=== PATIENT | female | born 2000 | race Caucasian/White ===

== ENCOUNTER → 2020-07-25 | Outpatient (REF) | payer OTHER | LOC: M PLALAB 16:18 | PROVIDERS: ATTEND Obstetrics & Gynecology | DX: Z34.80 Encounter for supervision of other normal pregnancy, unspecified trimester (principal); Z53.9 Procedure and treatment not carried out, unspecified reason ==

== ENCOUNTER → 2020-07-26 | Outpatient (REF) | payer OTHER ==
[2020-07-26 18:01] LABS: CHLAMYDIA DNA AMPLIFICATION POSITIVE (NEGATIVE); GC DNA AMPLIFICATION NEGATIVE (NEGATIVE)
[2020-07-26 18:15] LABS: HEMATOCRIT 38.1 % (36.0-47.0); HEMOGLOBIN 12.6 g/dl (12.0-15.5); MEAN CORPUSCULAR HEMOGLOBIN 29.5 pg (27.0-33.0); MEAN CORPUSCULAR HGB CONC 33.1 g/dl (32.0-36.5); MEAN CORPUSCULAR VOLUME 89.2 fl (80.0-96.0); PLATELET COUNT, AUTOMATED 301 10^3/uL (150-450); RED BLOOD COUNT 4.27 10^6/uL (4.00-5.40); WHITE BLOOD COUNT 10.9 10^3/uL (4.0-10.0)
[2020-07-27 09:41] LABS: HEPATITIS C VIRUS ABY INDEX < 0.0 INDEX (<0.8); HIV 1&2 SCREEN CENTAUR NEGATIVE (NEGATIVE)
== END ==
LOC: M PLALAB 14:11
PROVIDERS: ATTEND Obstetrics & Gynecology
DX: O99.211 Obesity complicating pregnancy, first trimester (principal)

== ENCOUNTER → 2020-08-23 | Outpatient (REF) | payer OTHER ==
[2020-08-23 20:29] LABS: CHLAMYDIA DNA AMPLIFICATION NEGATIVE (NEGATIVE); GC DNA AMPLIFICATION NEGATIVE (NEGATIVE)
== END ==
LOC: M PLALAB 08:33
PROVIDERS: ATTEND Obstetrics & Gynecology
DX: A74.9 Chlamydial infection, unspecified (principal)

== ENCOUNTER → 2020-08-23 | Outpatient (CLI) | payer OTHER | LOC: M PLALAB 15:31 | PROVIDERS: ATTEND Obstetrics & Gynecology | DX: Z36.89 Encounter for other specified antenatal screening (principal); Z34.81 Encounter for supervision of other normal pregnancy, first trimester ==

== ENCOUNTER → 2020-09-20 | Outpatient (CLI) | payer OTHER | LOC: M WHC 09:02 | PROVIDERS: ATTEND Obstetrics & Gynecology | DX: O99.212 Obesity complicating pregnancy, second trimester (principal); Z3A.16 16 weeks gestation of pregnancy; Z53.8 Procedure and treatment not carried out for other reasons ==

== ENCOUNTER → 2020-11-20 | Outpatient (CLI) | payer OTHER ==
--- NOTE | 2020-11-20 16:39 | REP ---
INDICATION: F/U ANATOMY. COMPARISON: 10/18/2019. TECHNIQUE: Real-time sonographic evaluation of the gravid uterus performed. FINDINGS: Estimated gestational age is25 weeks 4 days, EDC 03/01/2021. Today's measurements indicate appropriate growth. Presentation: Cephalic Placenta anterior, grade 1, without evidence of placenta previa. heart rate is recorded at 144 beats per minute. Amniotic fluid is subjectively normal. Closed cervical length is measured at 3.2 cm. Biometry chart: BPD: 68 mm, 27 weeks 3 days, 88th percentile. HC: 259 mm, 28 weeks 1 days, over 95th percentile AC: 240 mm, 28 weeks 2 days, over 95th percentile Femur length: 48 mm, 26 weeks 1 days, 63rd percentile HC to AC ratio: 1.08, normal range 1.01-1.20. Estimated weight: 1087g, greater than 97th percentile. Four-chamber heart and ventricular outflow tracts are visualized on today's exam and are grossly unremarkable. IMPRESSION: Viable single intrauterine gestation as above. <Electronically signed by Rosendo Hurd > 11/20/20 [id number]
== END ==
LOC: M WHC 14:56
PROVIDERS: ATTEND Advanced Practice Midwife
DX: Z36.89 Encounter for other specified antenatal screening (principal); Z3A.21 21 weeks gestation of pregnancy

== ENCOUNTER → 2020-12-25 | Outpatient (CLI) | payer OTHER ==
[2020-12-25 17:35] LABS: HEMATOCRIT 33.4 % (36.0-47.0); MEAN CORPUSCULAR HEMOGLOBIN 28.4 pg (27.0-33.0); MEAN CORPUSCULAR HGB CONC 32.9 g/dl (32.0-36.5); MEAN CORPUSCULAR VOLUME 86.3 fl (80.0-96.0); PLATELET COUNT, AUTOMATED 231 10^3/uL (150-450); RED BLOOD COUNT 3.87 10^6/uL (4.00-5.40); WHITE BLOOD COUNT 10.8 10^3/uL (4.0-10.0)
[2020-12-25 20:05] LABS: GC DNA AMPLIFICATION NEGATIVE (NEGATIVE)
== END ==
LOC: M PLALAB 15:36
PROVIDERS: ATTEND Advanced Practice Midwife
DX: Z36.89 Encounter for other specified antenatal screening (principal); Z3A.25 25 weeks gestation of pregnancy

== ENCOUNTER → 2021-01-16 | Outpatient (CLI) | payer OTHER | LOC: M LAB 08:22 | PROVIDERS: ATTEND Advanced Practice Midwife | DX: Z34.82 Encounter for supervision of other normal pregnancy, second trimester (principal) | CPT/HCPCS: 36415; 82951; 82952; 90471; 90715; G0463 ==

== ENCOUNTER → 2021-01-23 | Outpatient (CLI) | payer OTHER | LOC: M LAB 08:26 | PROVIDERS: ATTEND Advanced Practice Midwife | DX: Z33.1 Pregnant state, incidental (principal) ==

== ENCOUNTER → 2021-02-01 | Outpatient (REF) | payer OTHER | LOC: M SFHCWAGY 13:10 | PROVIDERS: ATTEND Advanced Practice Midwife | DX: O99.213 Obesity complicating pregnancy, third trimester (principal) ==

== ENCOUNTER → 2021-02-16 | Outpatient (CLI) | payer OTHER ==
--- NOTE | 2021-02-16 15:19 | REP ---
INDICATION: GROWTH UTERINE SIZE DATE DISCREPANCY COMPARISON: 11/20/2020 TECHNIQUE: Transabdominal obstetrical ultrasound with color Doppler evaluation. FINDINGS: Examination demonstrates a single live intrauterine in cephalic presentation. motion is identified by technologist. Placenta is noted anterior and grade 2 without evidence for placenta previa or abruption. Amniotic fluid volume is normal. Cervix measures 3.5 cm in length and appears closed.. Selected gestational age: 38 weeks 1 day with EVA 03/01/2021. Gestational age by current measurements 38 weeks 5 days with EVA 02/25/2021. FHR equals 139 beats per minute. BPD: 9.6 cm at 39 weeks 0 days HC: 34.1 cm at 39 weeks 1 day AC: 34.6 cm at 38 weeks 3 days FL: 7.5 cm at 38 weeks 4 days HL: 6.6 cm at 38 weeks 2 days HC/AC: 0.98 Estimated weight 3552 grams (75thpercentile). KITA: 22.6 cm (7.3-23.7) Umbilical artery SD ratio: 2.19 (1.54-3.35) IMPRESSION: Single live intrauterine in cephalic presentation demonstrating appropriate estimated weight. <Electronically signed by George Marie > 02/16/21 [id number]
== END ==
LOC: M WHC 14:35
PROVIDERS: ATTEND Advanced Practice Midwife
DX: O26.843 Uterine size-date discrepancy, third trimester (principal); Z3A.37 37 weeks gestation of pregnancy

== ENCOUNTER 2021-02-24 19:22 | Inpatient (IN) | payer OTHER ==
[~2021-02-24] VITALS: Ht 162.6 cm; Wt 105.6 kg
[2021-02-24 19:43] VITALS: BP 136/75
[2021-02-24] MEDS ORDERED: LACTATED RINGER'S 1000 ML IV STA (20:04)
[2021-02-24] MEDS ORDERED: LR 1,000 ML IV SCH (20:05)
[2021-02-24] MEDS ORDERED: CARBOPROST TROMETHAMINE 250 MCG/ML AMP IM PRN (20:05)
[2021-02-24] MEDS ORDERED: METHYLERGONOVINE MALEATE 0.2 MG/ML VIAL (J2210) IM PRN (20:05)
[2021-02-24] MEDS ORDERED: TRANEXAMIC ACID INJection 1,000 MG in NS 100 ML IV PRN (20:05)
--- OUTSIDE RECORDS SUMMARY | 2021-02-24 20:16 | CCD ---
Author Author [facility] Organization [facility] Address Unknown Phone Unavailable Care Team Providers Care Tomato Pulper Operator Name Role Phone Yariel Hou Unavailable PROBLEMS Type Condition ICD9-CM Code [id number] Code Onset Dates Condition S tatus W/U Status Risk SNOMED Code Notes Problem Obesity E66.9 Active confirmed 256397728 Problem Obesity complicating in third trimester O99.213 Active confirmed Problem BMI 39.0-39.9,adult Z68.39 Active confirmed 445241004 Problem Supervision of other normal Z34.80 Ac tive confirm [id number] Problem Obesity complicating in first trimester O99.211 Active confirmed Problem Obesity affecting in second trimester O9 9.212 Active confirmed 646539258911 Problem Obesity complicating in second trimester O99.212 Active confirmed [id number] ALLERGIES No Known Allergies ENCOUNTERS from 1999 to 2021-02-20 Encounter Location Date Provider Diagnosis [facility] [address] [place] [address] [place] [address] Feb, Yariel Hou Encounter for superv ision of normal first in third trimester Z34.03 IMMUNIZATIONS Vaccine Route Administration Date Status TDAP 0.5mL Boostrix IM Intramuscular Jan 16, 2021 Administere d Influenza 6mo & up Fluzone IM Intramuscular Feb 09, 2021 Admi nistered SOCIAL HISTORY Tobacco Use: Social History Observation Description Date Details (start date - stop date) Never Smoker Sex Assigned At : Social History Observation Description Sex Assigned At Unknown Domestic Violence: Question Answer Notes Status: No history of abuse Alcohol Screening: Question Answer Notes Did you have a drink containing alcohol in the past year? No Points 0 Interpretation Negative Tobacco Use: Question Answer Notes Are you a: never smoker REASON FOR REFERRAL No Information VITAL SIGNS Weight 233.0 lbs Feb, Weight-kg 105.69 kg Feb, Height 63 in Feb, BMI 41.274 kg/m2 Feb, Blood pressure systolic 126 mm Hg Feb, Blood pressure diastolic 84 mm Hg Feb, MEDICATIONS Medication SIG (Take, Route, Frequency, Duration) Notes Start Da te End Date Status Azithromycin 1 GM as directed Orally once for 1 day Jul Not-Taking 27-1 MG 1 tablet Orally Once a day Active PROCEDURES No Information RESULTS No Results REASON FOR VISIT 1 WK PN PER SAILAJA Goals Section No Information Health Concerns No Information MEDICAL EQUIPMENT No Information MENTAL STATUS No Information FUNCTIONAL STATUS No Information ASSESSMENTS Encounter Date Diagnosis Assessment Notes Treatment Notes Treatm ent Clinical Notes Feb, Encounter for supervision of normal first in third trimester (ICD-10 - Z34.03) PLAN OF TREATMENT Next Appt Details 1 Week Reason: Provider Name:Yariel Hou, 2021-02-26 1 1:00:00 AM, [address] [facility], , [place], [address], Insurance Providers Payer Name Payer Address Payer Phone Insured Name Patient Relati onship to Insured Coverage Start Date Coverage End Date [address] [phone] MARTA BLEDSOE self
--- OUTSIDE RECORDS SUMMARY | 2021-02-24 20:16 | CCD ---
Author Author [facility] Address Unknown Phone Unavailable Support Name Relationship Address Phone UE Next Of Kin Unknown Unavailable JC BLEDSOE Next Of Kin [address] [facility] [place] [address] RAKANJC CAO ECON [address] [place] [address] Unavailable Re-disclosure Warning The records that you are about to access may contain information from federally-assisted alcohol or drug abuse programs. If such information is present, then the following federally mandated warning applies: This information has been disclosed to you from records protected by federal confidentiality rules (42 CFR part 2). The federal rules prohibit you from making any further disclosure of this information unless further disclosure is expressly permitted by the written consent of the person to whom it pertains or as otherwise permitted by 42 CFR part 2. A general authorization for the release of medical or other information is NOT sufficient for this purpose. The Federal rules restrict any use of the information to criminally investigate or prosecute any alcohol or drug abuse patient.The records that you are about to access may contain highly sensitive health information, the redisclosure of which is protected by Article 27-F of the [facility] Public Health law. If you continue you may have access to information: Regarding HIV / AIDS; Provided by facilities licensed or operated by the [facility] Office of Mental Health; or Provided by the [facility] Office for People With Developmental Disabilities. If such information is present, then the following [facility] mandated warning applies: This information has been disclosed to you from confidential records which are protected by state law. State law prohibits you from making any further disclosure of this information without the specific written consent of the person to whom it pertains, or as otherwise permitted by law. Any unauthorized further disclosure in violation of state law may result in a fine or long term sentence or both. A general authorization for the release of medical or other information is NOT sufficient authorization for further disc losure. Encounters Encounter Providers Location Date Indications Data Source(s ) ( ESTOB) [facility] [address] [place] [address] 02/19/2021 12:00:00 AM EDT eCW1 ([facility]) (WC ESTOB) [facility] [address] [place] [address] 02/09/2021 12:00:00 AM EDT eCW1 ([facility]) (WC ESTOB) [facility] [address] [place] [address] 02/01/2021 12:00:00 AM EDT eCW1 ([facility]) ( ESTOB) [facility] [address] [place] [address] 01/16/2021 12:00:00 AM EDT eCW1 ([facility]) Unknown [address] [facility] [address] 12/28/2020 12:00:00 AM EDT eCW1 ([facility] (WC EST[facility]) [facility] [address] [place] [address] 12/25/2020 12:00:00 AM EDT eCW1 ([facility]) (WC ESTOB) [facility] [address] [place] [address] 12/12/2020 12:00:00 AM EDT eCW1 ([facility]) (WC ESTOB) [facility] [address] [place] [address] 11/21/2020 12:00:00 AM EDT eCW1 ([facility]) (WC ESTOB) enter Est OB [address] [place] [address] 10/24/2020 12:00:00 AM EDT eCW1 ([facility]) (WC ESTOB) [facility] [address] [place] [address] 09/20/2020 12:00:00 AM EDT eCW1 ([facility]) ( ESTOB) [facility] Est OB [address] [place] [address] 08/23/2020 12:00:00 AM EDT eCW1 ([facility]) Unknown [address] [facility] [address] 07/28/2020 12:00:00 AM EDT eCW1 ([facility]) ( NEWOB) [facility] New OB Visit [address] [place] [address] 07/26/2020 12:00:00 AM EDT eCW1 ([facility]) Immunizations Vaccine Date Status Description Data Source(s) New in 2011. IIV4 02/09/2021 12:17:00 PM EDT completed eCW1 ([facility]) New in 2011. IIV4 02/09/2021 12:17:00 PM EDT completed eCW1 ([facility]) New in 2011. IIV4 02/09/2021 12:17:00 PM EDT completed eCW1 ([facility]) Tdap 01/16/2021 12:22:00 PM EDT completed e CW1 ([facility]) Tdap 01/16/2021 12:22:00 PM EDT completed e CW1 ([facility]) Tdap 01/16/2021 12:22:00 PM EDT completed e CW1 ([facility]) Tdap 01/16/2021 12:22:00 PM EDT completed e CW1 ([facility]) Medications Medication Brand Name Start Date Product Form Dose Route Admi nistrative Instructions Pharmacy Instructions Status Indications Reaction Description Data Source(s) Azithromycin 16.7 MG/ML Oral Suspension Azithromycin 1 GM Az ithromycin 1 GM 07/28/2020 12:00:00 AM EDT suspended Azithromycin 1 GM eCW1 ([facility]) Azithromycin 16.7 MG/ML Oral Suspension Azithromycin 1 GM Az ithromycin 1 GM 07/28/2020 12:00:00 AM EDT suspended Azithromycin 1 GM eCW1 ([facility]) Azithromycin 16.7 MG/ML Oral Suspension Azithromycin 1 GM Az ithromycin 1 GM 07/28/2020 12:00:00 AM EDT suspended Azithromycin 1 GM eCW1 ([facility]) Azithromycin 16.7 MG/ML Oral Suspension Azithromycin 1 GM Az ithromycin 1 GM 07/28/2020 12:00:00 AM EDT suspended Azithromycin 1 GM eCW1 ([facility]) Azithromycin 16.7 MG/ML Oral Suspension Azithromycin 1 GM Az ithromycin 1 GM 07/28/2020 12:00:00 AM EDT suspended Azithromycin 1 GM eCW1 ([facility]) Azithromycin 16.7 MG/ML Oral Suspension Azithromycin 1 GM Az ithromycin 1 GM 07/28/2020 12:00:00 AM EDT active Azithromycin 1 GM eCW1 ([facility]) Azithromycin 16.7 MG/ML Oral Suspension Azithromycin 1 GM Az ithromycin 1 GM 07/28/2020 12:00:00 AM EDT suspended Azithromycin 1 GM eCW1 ([facility]) Azithromycin 16.7 MG/ML Oral Suspension Azithromycin 1 GM Az ithromycin 1 GM 07/28/2020 12:00:00 AM EDT suspended Azithromycin 1 GM eCW1 ([facility]) Azithromycin 16.7 MG/ML Oral Suspension Azithromycin 1 GM Az ithromycin 1 GM 07/28/2020 12:00:00 AM EDT active Azithromycin 1 GM eCW1 ([facility]) Azithromycin 16.7 MG/ML Oral Suspension Azithromycin 1 GM Az ithromycin 1 GM 07/28/2020 12:00:00 AM EDT suspended Azithromycin 1 GM eCW1 ([facility]) Azithromycin 16.7 MG/ML Oral Suspension Azithromycin 1 GM Az ithromycin 1 GM 07/28/2020 12:00:00 AM EDT suspended Azithromycin 1 GM eCW1 ([facility]) Azithromycin 16.7 MG/ML Oral Suspension Azithromycin 1 GM Az ithromycin 1 GM 07/28/2020 12:00:00 AM EDT suspended Azithromycin 1 GM eCW1 ([facility]) Azithromycin 16.7 MG/ML Oral Suspension Azithromycin 1 GM Az ithromycin 1 GM 07/28/2020 12:00:00 AM EDT suspended Azithromycin 1 GM eCW1 ([facility]) Insurance Providers Payer name Policy type / Coverage type Policy ID Covered green party ID Covered green party's relationship to brumfield Policy Brumfield Plan Information [facility] [id number] Problems, Conditions, and Diagnoses Code Display Name Description Problem Type Effective Dates Data Source(s) Z68.39 [id number] BMI 39.0-39.9,adult Problem 02/01/2021 12:00 :00 AM EDT eCW1 ([facility]) O99.213 Obesity complicating , third tr imester Obesity complicating in third trimester Problem 12/12/2020 12:00:00 AM EDT eCW1 ([facility]) O99.212 Maternal obesity complicatin g , childbirth and the puerperium, antepartum Obesity complicating in second trimester Problem 10/24/2020 12:00:00 AM EDT eCW1 ([facility]) O99.212 Maternal obesity complicatin g , childbirth and the puerperium, antepartum Obesity affecting in second trimester Problem 09/20/2020 12:00:00 AM EDT eCW1 ([facility]) O99.211 Obesity complicating , first tr imester Obesity complicating in first trimester Problem 07/26/2020 12:00:00 AM EDT eCW1 ([facility]) E66.9 Obesity Obesity Problem 07/26/2020 12:00:00 AM ED T eCW1 ([facility]) Z34.80 care Supervision of other normal P roblem 07/24/2020 12:00:00 AM EDT eCW1 ([facility]) Surgeries/Procedures Procedure Description Date Indications Data Source(s) INFLUENZA VIRUS VACC SPLIT PRSRV FREE 3 YRS/> IM 02/09 12:00:00 AM EDT eCW1 ([facility]) TDAP VACCINE 7/> YR IM 01/16/2021 12:00:00 AM EDT eCW1 ([facility]) Results ID Date Data Source GROUP B STREP CULTURE 02/01/2021 12:00:00 AM EDT eCW1 ([facility]) Name Value Range Interpretation Code Description Data Yolande rce(s) Supporting Document(s) GROUP B STREP CULTURE eCW1 ([facility]) ID Date Data Source CHLAMYDIA & GC DNA AMPLIFICAT 08/23/2020 12:00:00 AM EDT eCW 1 ([facility]) Name Value Range Interpretation Code Description Data Yolande rce(s) Supporting Document(s) Chlamydia trachomatis rRNA [Presence] in Unspecified specimen by Probe and target amplification method NEGATIVE NEGATIVE CHLAMYDIA DNA AMPLIFICATION eCW1 ([facility]) ID Date Data Source HBSAG 07/26/2020 12:00:00 AM EDT eCW1 ([facility]) Name Value Range Interpretation Code Description Data Yolande rce(s) Supporting Document(s) NEGATIVE NEGATIVE HBsAg eCW1 ([facility]) ID Date Data Source Glucose Challenge Test 1 Hour 07/26/2020 12:00:00 AM EDT eCW 1 ([facility]) Name Value Range Interpretation Code Description Data Yolande rce(s) Supporting Document(s) 107 LESS THAN 140 GLUCOSE CHALLENGE TEST 1 HOUR eCW1 ([facility]) ID Date Data Source HEPATITIS C ANTIBODY INDEX 07/26/2020 12:00:00 AM EDT eCW1 ( [facility]) Name Value Range Interpretation Code Description Data Yolande rce(s) Supporting Document(s) < 0.0 <0.8 HEPATITIS C VIRUS RIGOBERTO IND EX eCW1 ([facility]) ID Date Data Source URINE CULTURE 07/26/2020 12:00:00 AM EDT eCW1 ([facility]) Name Value Range Interpretation Code Description Data Yolande rce(s) Supporting Document(s) URINE CULTURE eCW1 ([facility]) ID Date Data Source RUBELLA IMMUNE STATUS IgG 07/26/2020 12:00:00 AM EDT eCW1 ([facility]) Name Value Range Interpretation Code Description Data Yolande rce(s) Supporting Document(s) EQUIVOCAL IMMUNE RUBELLA IgG QUALITATIVE e CW1 ([facility]) ID Date Data Source SYPHILIS ANTIBODY (RPR SCREEN) 07/26/2020 12:00:00 AM EDT eC W1 ([facility]) Name Value Range Interpretation Code Description Data Yolande rce(s) Supporting Document(s) NONREACTIVE NONREACTIVE SYPHILIS eCW1 ([facility]) ID Date Data Source [id number] 07/26/2020 12:00:00 AM EDT eCW1 ([facility]) Name Value Range Interpretation Code Description Data Yolande rce(s) Supporting Document(s) HIV 1&2 ANTIBODY SCREEN eCW1 ( [facility]) ID Date Data Source CBC - Complete Blood Count 07/26/2020 12:00:00 AM EDT eCW1 ( [facility]) Name Value Range Interpretation Code Description Data Yolande rce(s) Supporting Document(s) 4.27 4.00-5.40 RED BLOOD COUNT eCW1 ([facility]) 10.9 4.0-10.0 WHITE BLOOD COUNT eCW1 ([facility]) 89.2 80.0-96.0 MEAN CORPUSCULAR VOLUME e CW1 ([facility]) 29.5 27.0-33.0 MEAN CORPUSCULAR HEMOGLOB IN eCW1 ([facility]) 38.1 36.0-47.0 HEMATOCRIT eCW1 ([facility]) 12.6 12.0-15.5 HEMOGLOBIN eCW1 ([facility]) 301 150-450 PLATELET COUNT, AUTOMATED eCW1 ([facility]) 12.6 11.5-14.5 RED CELL DISTRIBUTION WID TH eCW1 ([facility]) 33.1 32.0-36.5 MEAN CORPUSCULAR HGB CONC eCW1 ([facility]) ID Date Data Source Type and Screen Prenatal1 07/26/2020 12:00:00 AM EDT eCW1 ([facility]) Name Value Range Interpretation Code Description Data Yolande rce(s) Supporting Document(s) NEGATIVE AB SCREEN PNP1 GEL (VIS) eCW1 ([facility]) Procedure Social History Code Duration Value Status Description Data Source(s ) Smoking 02/16/2021 12:00:00 AM EDT Never Smoker completed Never S moker eCW1 ([facility]) Smoking 02/08/2021 12:00:00 AM EDT Never Smoker completed Never S moker eCW1 ([facility]) Smoking 02/08/2021 12:00:00 AM EDT Never Smoker completed Never S moker eCW1 ([facility]) Smoking 01/15/2021 12:00:00 AM EDT Never Smoker completed Never S moker eCW1 ([facility]) Smoking 01/15/2021 12:00:00 AM EDT Never Smoker completed Never S moker eCW1 ([facility]) Smoking 12/25/2020 12:00:00 AM EDT Never Smoker completed Never S moker eCW1 ([facility]) Smoking 12/11/2020 12:00:00 AM EDT Never Smoker completed Never S moker eCW1 ([facility]) Smoking 11/17/2020 12:00:00 AM EDT Never Smoker completed Never S moker eCW1 ([facility]) Smoking 10/23/2020 12:00:00 AM EDT Never Smoker completed Never S moker eCW1 ([facility]) Smoking 09/20/2020 12:00:00 AM EDT Never Smoker completed Never S moker eCW1 ([facility]) Smoking 08/23/2020 12:00:00 AM EDT Never Smoker completed Never S moker eCW1 ([facility]) Smoking 07/26/2020 12:00:00 AM EDT Never Smoker completed Never S moker eCW1 ([facility]) Smoking 07/26/2020 12:00:00 AM EDT Never Smoker completed Never S moker eCW1 ([facility]) Vital Signs ID Date Data Source UNK Name Value Range Interpretation Code Description Data Source(s) Body weight 233.0 [lb_av] 233.0 [lb_av] eCW1 ([facility]) Body weight 105.69 kg 105.69 kg eCW1 ([facility]) Body height 63 [in_i] 63 [in_i] eCW1 ([facility]) Body mass index (BMI) [Ratio] 41.274 kg/m2 41.2 74 kg/m2 eCW1 ([facility]) Systolic blood pressure 126 mm[Hg] 126 mm[Hg] e CW1 ([facility]) Diastolic blood pressure 84 mm[Hg] 84 mm[Hg] eCW1 ([facility]) Body weight 227.8 [lb_av] 227.8 [lb_av] eCW1 ([facility]) Body mass index (BMI) [Ratio] 40.353 kg/m2 40.3 53 kg/m2 eCW1 ([facility]) Systolic blood pressure 120 mm[Hg] 120 mm[Hg] e CW1 ([facility]) Diastolic blood pressure 82 mm[Hg] 82 mm[Hg] eCW1 ([facility]) Body weight 103.33 kg 103.33 kg eCW1 ([facility]) Body height 63 [in_i] 63 [in_i] eCW1 ([facility]) Body weight 224.8 [lb_av] 224.8 [lb_av] eCW1 ([facility]) Body height 63 [in_i] 63 [in_i] eCW1 ([facility]) Body mass index (BMI) [Ratio] 39.822 kg/m2 39.8 22 kg/m2 eCW1 ([facility]) Systolic blood pressure 114 mm[Hg] 114 mm[Hg] e CW1 ([facility]) Diastolic blood pressure 72 mm[Hg] 72 mm[Hg] eCW1 ([facility]) Body weight 219.8 [lb_av] 219.8 [lb_av] eCW1 ([facility]) Body weight 99.7 kg 99.7 kg eCW1 ([facility]) Body height 63 [in_i] 63 [in_i] eCW1 ([facility]) Body mass index (BMI) [Ratio] 38.936 kg/m2 38.9 36 kg/m2 eCW1 ([facility]) Systolic blood pressure 110 mm[Hg] 110 mm[Hg] e CW1 ([facility]) Diastolic blood pressure 70 mm[Hg] 70 mm[Hg] eCW1 ([facility]) Body weight 219.4 [lb_av] 219.4 [lb_av] eCW1 ([facility]) Body height 63 [in_i] 63 [in_i] eCW1 ([facility]) Body mass index (BMI) [Ratio] 38.865 kg/m2 38.8 65 kg/m2 eCW1 ([facility]) Systolic blood pressure 110 mm[Hg] 110 mm[Hg] e CW1 ([facility]) Diastolic blood pressure 70 mm[Hg] 70 mm[Hg] eCW1 ([facility]) Body weight 217 [lb_av] 217 [lb_av] eCW1 ([facility]) Body weight 98.43 kg 98.43 kg eCW1 ([facility]) Body height 63 [in_i] 63 [in_i] eCW1 ([facility]) Body mass index (BMI) [Ratio] 38.44 kg/m2 38.44 kg/m2 eCW1 ([facility]) Systolic blood pressure 110 mm[Hg] 110 mm[Hg] e CW1 ([facility]) Diastolic blood pressure 70 mm[Hg] 70 mm[Hg] eCW1 ([facility]) Body weight 216.6 [lb_av] 216.6 [lb_av] eCW1 ([facility]) Diastolic blood pressure 80 mm[Hg] 80 mm[Hg] eCW1 ([facility]) Body weight 98.25 kg 98.25 kg eCW1 ([facility]) Body height 63 [in_i] 63 [in_i] eCW1 ([facility]) Body mass index (BMI) [Ratio] 38.369 kg/m2 38.3 69 kg/m2 eCW1 ([facility]) Systolic blood pressure 128 mm[Hg] 128 mm[Hg] e CW1 ([facility]) Body weight 216 [lb_av] 216 [lb_av] eCW1 ([facility]) Body weight 97.98 kg 97.98 kg eCW1 ([facility]) Body height 63 [in_i] 63 [in_i] eCW1 ([facility]) Body mass index (BMI) [Ratio] 38.263 kg/m2 38.2 63 kg/m2 eCW1 ([facility]) Systolic blood pressure 130 mm[Hg] 130 mm[Hg] e CW1 ([facility]) Diastolic blood pressure 78 mm[Hg] 78 mm[Hg] eCW1 ([facility]) Body weight 214.4 [lb_av] 214.4 [lb_av] eCW1 ([facility]) Body weight 97.25 kg 97.25 kg eCW1 ([facility]) Body height 63 [in_i] 63 [in_i] eCW1 ([facility]) Body mass index (BMI) [Ratio] 37.979 kg/m2 37.9 79 kg/m2 eCW1 ([facility]) Systolic blood pressure 124 mm[Hg] 124 mm[Hg] e CW1 ([facility]) Diastolic blood pressure 76 mm[Hg] 76 mm[Hg] eCW1 ([facility]) Body weight 215 [lb_av] 215 [lb_av] eCW1 ([facility]) Body height 63 [in_i] 63 [in_i] eCW1 ([facility]) Body mass index (BMI) [Ratio] 38.08 kg/m2 38.08 kg/m2 eCW1 ([facility]) Systolic blood pressure 130 mm[Hg] 130 mm[Hg] e CW1 ([facility]) Diastolic blood pressure 64 mm[Hg] 64 mm[Hg] eCW1 ([facility]) Body weight 217.2 [lb_av] 217.2 [lb_av] eCW1 ([facility]) Body height 63 [in_i] 63 [in_i] eCW1 ([facility]) Body mass index (BMI) [Ratio] 38.47 kg/m2 38.47 kg/m2 eCW1 ([facility]) Systolic blood pressure 138 mm[Hg] 138 mm[Hg] e CW1 ([facility]) Diastolic blood pressure 80 mm[Hg] 80 mm[Hg] eCW1 ([facility]) Patient Treatment Plan of Care Planned Activity Planned Date Details Description Data Source (s) Azithromycin 16.7 MG/ML Oral Suspension 07/28/2020 12:00:00 AM EDT eCW1 ([facility]) Azithromycin 16.7 MG/ML Oral Suspension 07/28/2020 12:00:00 AM EDT eCW1 ([facility])
--- OUTSIDE RECORDS SUMMARY | 2021-02-24 20:16 | CCD ---
Author Author [facility] Organization [facility] Address Unknown Phone Unavailable Care Team Providers Care Oil Recovery Operator Name Role Phone Michelle Parker Unavailable PROBLEMS Type Condition ICD9-CM Code [id number] Code Onset Dates Condition S tatus W/U Status Risk SNOMED Code Notes Problem Obesity complicating in second trimester O99.212 Active confirmed [id number] Problem Obesity complicating in third trimester O99.213 Active confirmed Problem Obesity E66.9 Active confirmed 381561391 Problem Supervision of other normal Z34.80 Ac tive confirm 235449165 Problem Obesity complicating in first trimester O99.211 Active confirmed Problem Obesity affecting in second trimester O9 9.212 Active confirmed [id number] ALLERGIES No Known Allergies ENCOUNTERS from 1999 to 2021-01-15 Encounter Location Date Provider Diagnosis [facility] [address] [place] [address] [place] [address] Dec, Michelle Parker Obesity complicating in third trimester O99.213 IMMUNIZATIONS No Information SOCIAL HISTORY Tobacco Use: Social History Observation [...] FOR REFERRAL No Information VITAL SIGNS Weight 219.4 lbs Dec, Height 63 in Dec, BMI 38.865 kg/m2 Dec, Blood pressure systolic 110 mm Hg Dec, Blood pressure diastolic 70 mm Hg Dec, MEDICATIONS Medication SIG (Take, Route, Frequency, Duration) Notes Start Da te End Date Status Azithromycin 1 GM as directed Orally once for 1 day Jul Not-Taking 27-1 MG 1 tablet Orally Once a day Active PROCEDURES No Information RESULTS No Results REASON FOR VISIT 2 WK PN Goals Section No Information Health Concerns No Information MEDICAL EQUIPMENT No Information MENTAL STATUS No Information FUNCTIONAL STATUS No Information ASSESSMENTS Encounter Date Diagnosis Assessment Notes Treatment Notes Treatm ent Clinical Notes Dec, Obesity complicating pregnan cy in third trimester (ICD-10 - O99.213) PLAN OF TREATMENT Next Appt Details 2 Weeks Reason:pn Provider Name:Manoj Beasley Colin, 2021-01-16 12:00:00 AM, [address] [facility], , [place], [address], Follow Up:2 Weekspn Insurance Providers Payer Name Payer Address Payer Phone Insured Name Patient Relati onship to Insured Coverage Start Date Coverage End Date [address] [phone] MARTA BLEDSOE self
--- OUTSIDE RECORDS SUMMARY | 2021-02-24 20:16 | CCD ---
Author Author [facility] Organization [facility] Address Unknown Phone Unavailable Care Team Providers Care School Secretary Name Role Phone CristiManoj Unavailable PROBLEMS Type Condition ICD9-CM Code [id number] Code Onset Dates Condition S tatus W/U Status Risk SNOMED Code Notes Problem Obesity complicating in second trimester O99.212 Active confirmed [id number] Problem Obesity complicating in third trimester O99.213 Active confirmed Problem Obesity E66.9 Active confirmed 655523841 Problem Supervision of other normal Z34.80 Ac tive confirm 666669713 Problem Obesity complicating in first trimester O99.211 Active confirmed Problem Obesity affecting in second trimester O9 9.212 Active confirmed [id number] ALLERGIES No Known Allergies ENCOUNTERS from 1999 to 2021-01-24 Encounter Location Date Provider Diagnosis [facility] [address] [place] [address] [place] [address] 14 Jan, 2021 Manoj Colin Encounter for superv ision of normal first in third trimester Z34.03 ; 33 weeks gestation of Z3A.33 and Encounter for immunization Z23 IMMUNIZATIONS Vaccine Route Administration Date Status TDAP 0.5mL Boostrix IM Intramuscular Jan 16, 2021 Administere d SOCIAL HISTORY Tobacco Use: Social History Observation [...] FOR REFERRAL No Information VITAL SIGNS Weight 219.8 lbs Jan, Weight-kg 99.7 kg Jan, Height 63 in Jan, BMI 38.936 kg/m2 Jan, Blood pressure systolic 110 mm Hg Jan, Blood pressure diastolic 70 mm Hg Jan, MEDICATIONS Medication SIG (Take, Route, Frequency, Duration) Notes Start Da te End Date Status 27-1 MG 1 tablet Orally Once a day Active Azithromycin 1 GM as directed Orally once for 1 day Jul Not-Taking PROCEDURES from 1999 to 2021-01-24 Procedure Date Ordered Result Body Site Imm: Boostrix 0.5mL IM TDAP 2021-01-16 N/A RESULTS No Results REASON FOR VISIT 2 WK PN Goals Section No Information Health Concerns No Information MEDICAL EQUIPMENT No Information MENTAL STATUS No Information FUNCTIONAL STATUS No Information ASSESSMENTS Encounter Date Diagnosis Assessment Notes Treatment Notes Treatm ent Clinical Notes Jan, Encounter for supervision of normal first in third trimester (ICD-10 - Z34.03) Jan, 33 weeks gestation of (ICD-10 - Z3A.33 ) Jan, Encounter for immunization (ICD-10 - Z23) PLAN OF TREATMENT Next Appt Details Provider Name:Anastasia Green, 2021-02-01 01:40:00 PM, [address] [facility], , [place], [address], Insurance Providers Payer Name Payer Address Payer Phone Insured Name Patient Relati onship to Insured Coverage Start Date Coverage End Date [address] [phone] MARTA BLEDSOE self
--- OUTSIDE RECORDS SUMMARY | 2021-02-24 20:16 | CCD ---
Author Author [facility] Organization [facility] Address Unknown Phone Unavailable Care Team Providers Care Floral Decorator Name Role Phone JinaHalina galan Unavailable PROBLEMS Type Condition ICD9-CM Code HVS18-[id number] Code Onset Dates Condition S tatus W/U Status Risk SNOMED Code Notes Problem Obesity complicating in second trimester O99.212 Active confirmed [id number] Problem Obesity complicating in third trimester O99.213 Active confirmed Problem Obesity E66.9 Active confirmed 754981423 Problem Supervision of other normal Z34.80 Ac tive confirm 220569184 Problem Obesity complicating in first trimester O99.211 Active confirmed Problem Obesity affecting in second trimester O9 9.212 Active confirmed [id number] ALLERGIES No Known Allergies ENCOUNTERS from 1999 to 2020-12-13 Encounter Location Date Provider Diagnosis [facility] [address] [place] [address] [place] [address] 10 Dec, 2020 Halina Cano Obesity complicat ing in third trimester O99.213 and 28 weeks gestation of Z3A.28 IMMUNIZATIONS No Information SOCIAL HISTORY Tobacco Use: [...] FOR REFERRAL No Information VITAL SIGNS Weight 217 lbs 10 Dec, 2020 Weight-kg 98.43 kg Dec, Height 63 in Dec, BMI 38.44 kg/m2 Dec, Blood pressure systolic 110 mm Hg Dec, Blood pressure diastolic 70 mm Hg Dec, MEDICATIONS Medication SIG (Take, Route, Frequency, Duration) Notes Start Da te End Date Status 27-1 MG 1 tablet Orally Once a day Active Azithromycin 1 GM as directed Orally once for 1 day Jul Not-Taking PROCEDURES No Information RESULTS No Results REASON FOR VISIT 3 wk pn Goals Section No Information Health Concerns No Information MEDICAL EQUIPMENT No Information MENTAL STATUS No Information FUNCTIONAL STATUS No Information ASSESSMENTS Encounter Date Diagnosis Assessment Notes Treatment Notes Treatm ent Clinical Notes Dec, Obesity complicating pregnan cy in third trimester (ICD-10 - O99.213) Dec, 28 weeks gestation of (ICD-10 - Z3A.28 ) PLAN OF TREATMENT Next Appt Details 2 Weeks Reason:- Routine follow up Provider Name:Michelle Anotnio Parker, 2020-12-25 0 2:40:00 PM, [address] [facility], , [place], [address], Follow Up:2 Weeks- Routine follow up Insurance Providers Payer Name Payer Address Payer Phone Insured Name Patient Relati onship to Insured Coverage Start Date Coverage End Date [place] [phone] MARTA BLEDSOE self
--- OUTSIDE RECORDS SUMMARY | 2021-02-24 20:16 | CCD ---
Author Author [facility] Organization [facility] Address Unknown Phone Unavailable Care Team Providers Care Hogshead Hand Name Role Phone Yariel Hou Unavailable PROBLEMS Type Condition ICD9-CM Code [id number]-[id number] Code Onset Dates Condition S tatus W/U Status Risk SNOMED Code Notes Problem Obesity E66.9 Active confirmed 716379233 Problem Obesity complicating in third trimester O99.213 Active confirmed Problem BMI 39.0-39.9,adult Z68.39 Active confirmed 879156165 Problem Supervision of other normal Z34.80 Ac tive confirm 041623866 Problem Obesity complicating in first trimester O99.211 Active confirmed Problem Obesity affecting in second trimester O9 9.212 Active confirmed 839795783197 Problem Obesity complicating in second trimester O99.212 Active confirmed [id number] ALLERGIES No Known Allergies ENCOUNTERS from 1999 to 2021-02-12 Encounter Location Date Provider Diagnosis [facility] [phone] [place] [address] 08 Feb, 2021 Yariel Hou Uterine size-date di screpancy in third trimester O26.843 ; 37 weeks gestation of Z3A.37 and Encounter for immunization Z23 IMMUNIZATIONS Vaccine [...] FOR REFERRAL No Information VITAL SIGNS Weight 227.8 lbs Feb, Weight-kg 103.33 kg Feb, Height 63 in Feb, BMI 40.353 kg/m2 Feb, Blood pressure systolic 120 mm Hg Feb, Blood pressure diastolic 82 mm Hg Feb, MEDICATIONS Medication SIG (Take, Route, Frequency, Duration) Notes Start Da te End Date Status 27-1 MG 1 tablet Orally Once a day Active Azithromycin 1 GM as directed Orally once for 1 day Jul Not-Taking PROCEDURES from 1999 to 2021-02-12 Procedure Date Ordered Result Body Site Imm: Fluzone 6mo & older 0.5mL IM Influenza 2021-02-09 N/A RESULTS No Results REASON FOR VISIT 1 wk pn Goals Section No Information Health Concerns No Information MEDICAL EQUIPMENT No Information MENTAL STATUS No Information FUNCTIONAL STATUS No Information ASSESSMENTS Encounter Date Diagnosis Assessment Notes Treatment Notes Treatm ent Clinical Notes Feb, Uterine size-date discrepanc y in third trimester (ICD-10 - O26.843) Feb, 37 weeks gestation of (ICD-10 - Z3A.37 ) Feb, Encounter for immunization (ICD-10 - Z23) PLAN OF TREATMENT Treatment Notes Test Name Order Date WW OBS FOLLOW UP OR REPEAT 2021-02-09 Next Appt Details 1 Week Reason: Provider Name:Yariel Hou, 2021-02-19 0 3:00:00 PM, [address] [facility], , [place], [address], Insurance Providers Payer Name Payer Address Payer Phone Insured Name Patient Relati onship to Insured Coverage Start Date Coverage End Date [place] [phone] MARTA BLEDSOE self
--- OUTSIDE RECORDS SUMMARY | 2021-02-24 20:16 | CCD ---
Author Author [facility] Organization [facility] Address Unknown Phone Unavailable Care Team Providers Care Territory Manager Name Role Phone Anastasia Green Unavailable PROBLEMS Type Condition ICD9-CM Code [id number] Code Onset Dates Condition S tatus W/U Status Risk SNOMED Code Notes Problem Obesity E66.9 Active confirmed 761249908 Problem Obesity complicating in third trimester O99.213 Active confirmed Problem BMI 39.0-39.9,adult Z68.39 Active confirmed 015311097 Problem Supervision of other normal Z34.80 Ac tive confirm 427575451 Problem Obesity complicating in first trimester O99.211 Active confirmed Problem Obesity affecting in second trimester O9 9.212 Active confirmed 877962923658 Problem Obesity complicating in second trimester O99.212 Active confirmed [id number] ALLERGIES No Known Allergies ENCOUNTERS from 1999 to 2021-02-14 Encounter Location Date Provider Diagnosis [facility] [address] [place] [address] [place] [address] 30 Jan, 2021 Anastasia Green Obesity complicating in third trimester O99.213 ; Obesity E66.9 ; BMI 39.0-39.9,adult Z68.39 and 36 weeks gestation of Z3A.36 IMMUNIZATIONS Vaccine Route Administration Date Status TDAP [...] FOR REFERRAL No Information VITAL SIGNS Weight 224.8 lbs Jan, Height 63 in Jan, BMI 39.822 kg/m2 Jan, Blood pressure systolic 114 mm Hg Jan, Blood pressure diastolic 72 mm Hg Jan, MEDICATIONS Medication SIG (Take, Route, Frequency, Duration) Notes Start Da te End Date Status 27-1 MG 1 tablet Orally Once a day Active Azithromycin 1 GM as directed Orally once for 1 day Jul Not-Taking PROCEDURES No Information RESULTS Component Value Reference Range GROUP B STREP CULTURE Reviewed date:02/05/2021 08:06:14 Interpretation: Performing Lab:[facility], [facility] [address] [facility] [address] , ,[place] [address] REASON FOR VISIT 2 wk pn Goals Section No Information Health Concerns No Information MEDICAL EQUIPMENT No Information MENTAL STATUS No Information FUNCTIONAL STATUS No Information ASSESSMENTS Encounter Date Diagnosis Assessment Notes Treatment Notes Treatm ent Clinical Notes Jan, Obesity (ICD-10 - E66.9) Jan, Obesity complicating pregnan cy in third trimester (ICD-10 - O99.213) Jan, BMI 39.0-39.9,adult (ICD-10 - Z68.39) Jan, 36 weeks gestation of (ICD-10 - Z3A.36 ) PLAN OF TREATMENT Next Appt Details 1 Week Reason:PN Provider Name:Yariel Hou, 2021-02-19 0 3:00:00 PM, [address] [facility], , [place], [address], Follow Up:1 WeekPN Insurance Providers Payer Name Payer Address Payer Phone Insured Name Patient Relati onship to Insured Coverage Start Date Coverage End Date [place] [phone] MARTA BLEDSOE self
--- OUTSIDE RECORDS SUMMARY | 2021-02-24 20:16 | CCD ---
Author Author [facility] Organization [facility] Address Unknown Phone Unavailable Care Team Providers Care Manager Discovery Name Role Phone Halina Cano Unavailable PROBLEMS Type Condition ICD9-CM Code [id number] Code Onset Dates Condition S tatus W/U Status Risk SNOMED Code Notes Problem Obesity complicating in second trimester O99.212 Active confirmed [id number] Problem Obesity complicating in third trimester O99.213 Active confirmed Problem Obesity E66.9 Active confirmed 938668843 Problem Supervision of other normal Z34.80 Ac tive confirm 691480706 Problem Obesity complicating in first trimester O99.211 Active confirmed Problem Obesity affecting in second trimester O9 9.212 Active confirmed [id number] ALLERGIES No Known Allergies ENCOUNTERS from 1999 to 2020-12-28 Encounter Location Date Provider Diagnosis [facility] [address] [place] [address] [place] [address] Dec, Halina Muropkgertrude Second trimester Z33.1 IMMUNIZATIONS No Information SOCIAL HISTORY Tobacco Use: [...] REASON FOR REFERRAL No Information VITAL SIGNS No information MEDICATIONS Medication SIG (Take, Route, Frequency, Duration) Notes Start Da te End Date Status Azithromycin 1 GM as directed Orally once for 1 day Jul Not-Taking 27-1 MG 1 tablet Orally Once a day Active PROCEDURES No Information RESULTS No Results REASON FOR VISIT No Information Goals Section No Information Health Concerns No Information MEDICAL EQUIPMENT No Information MENTAL STATUS No Information FUNCTIONAL STATUS No Information ASSESSMENTS Encounter Date Diagnosis Assessment Notes Treatment Notes Treatm ent Clinical Notes Dec, Second trimester (ICD-10 - Z33.1) PLAN OF TREATMENT Treatment Notes Test Name Order Date Glucose ARAM 3 HR Gestational 2020-12-28 Next Appt Details Provider Name:Manoj Colin, 2021-01-16 12:00:00 AM, [address] [facility], , [place], [address], Insurance Providers Payer Name Payer Address Payer Phone Insured Name Patient Relati onship to Insured Coverage Start Date Coverage End Date [address] [phone] MARTA BLEDSOE self
--- NOTE | 2021-02-24 20:18 | HPEPDOC ---
Obstetrical History & Physical General Date of Admission 02/24/21 History of Present Illness Pt is a 20yo at 39w2d who presents to labor and delivery with contractions every 3-5min. No lof/vb. +FM Chief Complaint: Contractions, term Information Provided By: Patient Age: 20 : 1 Term: 0 Pre-term: 0 Abortions: 0 Livin Care Care: Good Care Dating Final EDC: Mar 01, 2021 Antepartum Course Diagnos(e)s 1. Obesity 2. Chlamydia at NOB, negative test of cure 3. Rubella equiv. 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 BREAST: . ABDOMEN: Gravid and non-tender to touch. FETUS: Is vertex (VTX) by BSUS HEART RATE: Regular rate and rhythm. LUNGS: Clear to auscultation (CTA). EXTREMITIES: No edema. No clonus. Vital Signs/I&O Vital Signs Date Time Temp Pulse Resp B/P (MAP) Pulse Ox O2 Delivery O2 Flow Rate FiO2 02/24/21 19:43 97.6 81 18 136/75 (95) Pertinent Laboratoy Data Blood Type: A+ RBC Antibody Screen: Negative HIV: Negative Hepatitis B: Negative Hepatitis C: Negative Rapid Plasma Reagin: Nonreactive Rubella: Nonreactive Chlamydia/Gonorrhea: Positive (MATTHEW neg) Group B Streptococcus: Negative Glucose Tolerance Test: 163 Vaginal Examination Dilation: 6 cm Effacement: 100% Station: -1 Cervical Consistency: Soft Cervical Position: Anterior Assessment Heart Rate (FHR): 150 Variability: Moderate Accelerations: Positive Decelerations: None Tocometer Contractions: Yes Frequency: regular Assessment/Plan Assessment 20-year-old (G)1 para (P)0 at 39+2 weeks. Presents to Labor and Delivery (L&D) with contracts, found to be in active labor. Plan Admit and orient. Escalator Installer and consent. Diet: clear liquids. Group B Streptococcus (GBS) negative. Labs and intravenous (IV) per unit protocol. Counseled on Pitocin and induction of labor (IOL) if ctx space out. Lactated Ringers (LR): Bolus 1000 mL, then at 125 mL/hr. Anticipate C-S as appropriate. GE KENDRICK MD Feb 24, 2021 20:17
[2021-02-24 20:43] LABS: HEMATOCRIT 36.2 % (36.0-47.0); HEMOGLOBIN 11.8 g/dl (12.0-15.5); MEAN CORPUSCULAR HGB CONC 32.6 g/dl (32.0-36.5); MEAN CORPUSCULAR VOLUME 82.8 fl (80.0-96.0); PLATELET COUNT, AUTOMATED 238 10^3/uL (150-450); RED BLOOD COUNT 4.37 10^6/uL (4.00-5.40); WHITE BLOOD COUNT 11.9 10^3/uL (4.0-10.0)
[2021-02-24] MEDS ORDERED: FENTANYL 2MCG/ML ROPIVACAINE 0.2% IN 0.9% NACL 100ML IVBAG As Ordered ONE (21:03)
[2021-02-24] MEDS ORDERED: EPIDURAL/PCA KEYS XX PRN (21:25)
[2021-02-24] MEDS ORDERED: FENTANYL/ROPIVACAINE/NACL BAG 100 ML EPIDURAL SCH (21:25)
[2021-02-24] MEDS ORDERED: LACTATED RINGER'S 1000 ML IV PRN (21:25)
[2021-02-24] MEDS ORDERED: EPIDURAL COMMENT XX SCH (21:25)
[2021-02-24] MEDS ORDERED: diphenhydrAMINE 50MG/ML VIAL (J1200) IV PRN (21:25)
[2021-02-24] MEDS ORDERED: ePHEDrine SULFATE 25 MG/5 ML(5MG/ML) SYRINGE IV PRN (21:25)
[2021-02-24] MEDS ORDERED: ONDANSETRON 4MG/2ML VIAL IV PRN (21:25)
[2021-02-24] MEDS ORDERED: NALOXONE INJ 0.4MG/1ML VIAL (J2310 PER 1MG) IV PRN (21:25)
[2021-02-24] MEDS ORDERED: REFRIGERATOR IV KEYS XX PRN (21:25)
[2021-02-25] MEDS ORDERED: OXYTOCIN 30 UNITS IN 0.9% NaCl 500ML IV BAG (J2590) As Ordered ONE (00:42)
--- NOTE | 2021-02-25 01:04 | IPNPDOC ---
Obstetrical Progress Note Date of Service Feb 25, 2021 Subjective Pt feeling more pressure w/ ctx Objective Vital Signs Date Time Temp Pulse Resp B/P (MAP) Pulse Ox O2 Delivery O2 Flow Rate FiO2 02/24/21 19:43 97.6 81 18 136/75 (95) Assessment Heart Rate (FHR): 150 Variability: Moderate Accelerations: Positive Decelerations: None Heart Rate Tracing: Category I Tocometer Contractions: Yes Sterile Vaginal Examination Dilation: 9 cm Effacement (%): 100% Station: 0 Assessment and Plan Age: 20 : 1 Term: 0 Status: Reassuring Anticipate: Vaginal Delivery (start RDP) GE KENDRICK MD Feb 25, 2021 01:04
[2021-02-25] MEDS ORDERED: OXYTOCIN DRIP 30 UNITS in IV 1 EA IV SCH ×2 (01:05→03:35)
[2021-02-25] MEDS ORDERED: DOCUSATE SODIUM 100MG CAPSULE PO PRN (03:35)
[2021-02-25] MEDS ORDERED: MEASLES,MUMPS,RUBELLA VACCINE INJ (MMR-II) (90707) SC SCH (03:35)
[2021-02-25] MEDS ORDERED: DIBUCAINE 1% OINTMENT 30GM TOP PRN (03:35)
[2021-02-25] MEDS ORDERED: ACETAMINOPHEN 500 MG TAB PO PRN (03:35)
[2021-02-25] MEDS ORDERED: METHYLERGONOVINE MALEATE 0.2 MG TAB PO PRN (03:35)
[2021-02-25] MEDS ORDERED: RHOGAM 300 MCG (1500 IU) INJ (J2790) IM SCH (03:35)
--- NOTE | 2021-02-25 04:30 | DNPDOC ---
[facility] Delivery Note Delivery Note DATE OF DELIVERY: 02/25/2021 PREDELIVERY DIAGNOSIS: 39-2/7 weeks' gestation and labor. POST DELIVERY DIAGNOSIS: Delivered. PROCEDURE: Spontaneous vaginal. 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 Ge Kendrick ANESTHESIA: Epidural. ESTIMATED BLOOD LOSS: 200 mL. FINDINGS: 8 pound 9 ounce male , Score 9/9 DELIVERY SUMMARY: Patient is a 20-year-old 1 now para 1 who was admitted to labor and delivery for active labor at term. She received an epidural and was managed expectantly. Once the patient was comfortable her membranes were ruptured artificially. She progressed to 9 cm dilated, however, her contractions spaced out and she was started on regular dose Pitocin. She progressed to 10 cm and +2 station. She pushed with good effort and delivered a vigorous male over an intact perineum. The was noted to have a short umbilical cord which was clamped and cut prior to the infant being handed to the mother. The placenta was delivered with expression. She had a left vaginal sidewall abrasion which was reapproximated with a 3-0 chromic suture. After the repair the patient was noted to have a small amount of persistent oozing. Bimanual exam was performed with a small amount of clot collected in the uterus. The clots were expressed and a small amount of membrane was noted and removed. She was given a dose of IM Methergine. Sponge and sharp count were correct. GE KENDRICK MD Feb 25, 2021 04:30
[2021-02-25 05:30] VITALS: BP 125/66
[2021-02-25] MEDS: IBUPROFEN 600MG TAB PO PRN ×2 (08:53→19:49)
[2021-02-25] MEDS: PRENATAL VITAMINS CHEWABLE TABLET PO SCH (11:30)
[2021-02-25 18:00] VITALS: BP 115/68
[2021-02-26 06:00] VITALS: BP 115/70
[2021-02-26] MEDS: PRENATAL VITAMINS CHEWABLE TABLET PO SCH (08:00)
--- NOTE | 2021-02-26 12:12 | IPNPDOC ---
Progress Note Date of Service: Feb 26, 2021 Day#: 1 Progress Note SUBJECT: Jemima is a that had a vaginal delivery 02/25/21 at 0257. She had a male that weighted 8 lbs 9 oz. She is . Reports she is ambulating without any dizziness, eating a regular diet, and voiding without any issues. She has no complaints. OBJECTIVE: VITAL SIGNS: See below. Alert and oriented times three. Respiratory rate is regular without use of accessory muscles. Abdomen: Fundus firm at U. Soft, NTTP. Minimal lochia. ASSESSMENT: Day 1 PLAN: 1. Continue supportive nursing care. 2. Continue with support. 3. Anticipate discharge to home tomorrow. VS, I&O, 24H, Fishbone Vital Signs/I&O Vital Signs Date Time Temp Pulse Resp B/P (MAP) Pulse Ox O2 Delivery O2 Flow Rate FiO2 02/26/21 06:00 97.6 71 16 115/70 (85) 99 Room Air JODI EDWARDS CNM Feb 26, 2021 12:12
[2021-02-26 18:00] VITALS: BP 121/65
[2021-02-26] MEDS: IBUPROFEN 600MG TAB PO PRN (18:39)
[2021-02-27 05:57] VITALS: BP 121/75
[2021-02-27] MEDS: PRENATAL VITAMINS CHEWABLE TABLET PO SCH (08:56)
[2021-02-27] MEDS: IBUPROFEN 600MG TAB PO PRN (11:29)
--- NOTE | 2021-02-27 12:49 | IPNPDOC ---
Progress Note Date of Service: Feb 27, 2021 Day#: 2 Progress Note SUBJECT: Status post . She has been ambulating, voiding spontaneously with out issue and tolerating regular diet. Lochia decreasing/minimal. Pain is well- controlled. Denies headache, visual changes, right upper quadrant pain, shortness breath or chest pain. OBJECTIVE: VITAL SIGNS: Within normal limits, afebrile. Alert and oriented times three. Abdomen: Fundus firm at U-2. Soft, NTTP. ASSESSMENT: Status post uncomplicated spontaneous vaginal delivery. Vitals within normal limits, afebrile, hemodynamically stable with no evidence of infection. PLAN: Discharge to home today. Tylenol and Motrin for pain. Routine instructions/precautions reviewed. Routine PP visit in 6 weeks in clinic. VS, I&O, 24H, Fishbone Vital Signs/I&O Vital Signs Date Time Temp Pulse Resp B/P (MAP) Pulse Ox O2 Delivery O2 Flow Rate FiO2 02/27/21 05:57 97.1 80 18 121/75 (90) 100 Room Air LINNEA LI DO Feb 27, 2021 12:49
== END 2021-02-27 16:40 | disposition home or self-care (01) | DRG 807 ==
LOC: M LDO 19:22 → M LDI 20:06 → M OBS 02-25 05:21
PROVIDERS: ADMIT Obstetrics & Gynecology; ATTEND Obstetrics & Gynecology
PROC: 10907ZC Drainage of Amniotic Fluid, Therapeutic from Products of Conception, Via Natural or Artificial Opening (ICD-10-PCS; 2021-02-24)
PROC: 10E0XZZ Delivery of Products of Conception, External Approach (ICD-10-PCS; principal; 2021-02-25)
DX: O99.214 Obesity complicating childbirth (principal); Z37.0 Single live birth; E66.9 Obesity, unspecified; Z3A.39 39 weeks gestation of pregnancy